=== PATIENT | male | born 1965 | race Two or more races ===

== ENCOUNTER 2017-04-09 12:29 | Emergency (ER) | payer MEDICAID, OTHER ==
[~2017-04-09] VITALS: Ht 177.8 cm; Wt 72.7 kg
[~2017-04-09 12:29] MED LIST: DOXY50CA4 PO; OMEP20TA62 PO; PANT40TA5 PO
[2017-04-09 12:31] VITALS: BP 151/91
[2017-04-09] MEDS ORDERED: DIAZEPAM 5 MG TABLET ONE (13:26)
[2017-04-09] MEDS ORDERED: HYDROcodone/APAP 5/325 TABLET ONE (13:27)
[2017-04-09] MEDS ORDERED: KETOROLAC 30 MG/1 ML ONE (13:27)
[2017-04-09] MEDS ORDERED: KETOROLAC 30 MG/1 ML IM ONE (13:30)
[2017-04-09] MEDS ORDERED: HYDROcodone/APAP 5/325 TABLET PO ONE (13:30)
[2017-04-09] MEDS ORDERED: DIAZEPAM 5 MG TABLET PO ONE (13:30)
== END 2017-04-09 14:24 | disposition home or self-care (01) ==
LOC: ED 14:00
DX: G89.29 Other chronic pain (principal); M54.5 Low back pain; K21.9 Gastro-esophageal reflux disease without esophagitis
CPT/HCPCS: 96372; 99283; J1885

== ENCOUNTER 2017-05-19 14:08 | Emergency (ER) | payer OTHER ==
[~2017-05-19] VITALS: Ht 172.7 cm; Wt 76.6 kg
[2017-05-19 14:09] VITALS: BP 160/98
[2017-05-19] MEDS ORDERED: DIAZEPAM 5 MG TABLET ONE (14:47)
[2017-05-19] MEDS ORDERED: KETOROLAC 30 MG/1 ML ONE (14:47)
[2017-05-19] MEDS ORDERED: DIAZEPAM 5 MG TABLET PO ONE (15:00)
[2017-05-19] MEDS ORDERED: KETOROLAC 30 MG/1 ML IM ONE (15:00)
[2017-05-19] MEDS ORDERED: HYDROcodone/APAP 5/325 TABLET ONE (15:26)
[2017-05-19] MEDS ORDERED: HYDROcodone/APAP 5/325 TABLET PO ONE (15:30)
== END 2017-05-19 15:42 | disposition home or self-care (01) ==
LOC: ED 15:29
DX: S39.012A Strain of muscle, fascia and tendon of lower back, initial encounter (principal); G89.29 Other chronic pain; K21.9 Gastro-esophageal reflux disease without esophagitis; Y99.0 Civilian activity done for income or pay; Y93.89 Activity, other specified; Y92.89 Other specified places as the place of occurrence of the external cause
CPT/HCPCS: 96372; 99283; J1885

== ENCOUNTER 2017-07-28 06:45 | Emergency (ER) | payer MEDICAID, OTHER ==
[~2017-07-28] VITALS: Ht 175.3 cm; Wt 78.0 kg
[2017-07-28 07:10] VITALS: BP 149/82
== END 2017-07-28 07:34 | disposition home or self-care (01) ==
LOC: ED 07:10
DX: M54.42 Lumbago with sciatica, left side (principal); G89.29 Other chronic pain; K21.9 Gastro-esophageal reflux disease without esophagitis
CPT/HCPCS: 99283

== ENCOUNTER 2018-01-16 08:31 | Emergency (ER) | payer MEDICAID, OTHER ==
[~2018-01-16] VITALS: Ht 177.8 cm; Wt 80.5 kg
[2018-01-16 08:33] VITALS: BP 147/75
[2018-01-16] MEDS ORDERED: HYDROcodone/APAP 5/325 TABLET ONE (08:48)
[2018-01-16] MEDS ORDERED: HYDROcodone/APAP 5/325 TABLET PO ONE (09:00)
== END 2018-01-16 09:22 | disposition home or self-care (01) ==
LOC: ED 09:16
DX: K02.9 Dental caries, unspecified (principal); K21.9 Gastro-esophageal reflux disease without esophagitis
CPT/HCPCS: 99283

== ENCOUNTER 2018-01-26 14:27 | Emergency (ER) | payer MEDICAID | END 2018-01-26 15:35 | disposition left against medical advice (07) | LOC: ED 15:29 | DX: K13.79 Other lesions of oral mucosa (principal); Z53.21 Procedure and treatment not carried out due to patient leaving prior to being seen by health care provider ==

== ENCOUNTER 2018-02-21 20:06 | Emergency (ER) | payer MEDICAID ==
[~2018-02-21] VITALS: Ht 177.8 cm; Wt 79.8 kg
[2018-02-21 20:20] VITALS: BP 150/84
== END 2018-02-21 21:37 | disposition home or self-care (01) ==
LOC: ED 21:31
DX: K08.89 Other specified disorders of teeth and supporting structures (principal); K21.9 Gastro-esophageal reflux disease without esophagitis
CPT/HCPCS: 99283

== ENCOUNTER 2018-06-08 17:21 | Inpatient (IN) | payer MEDICAID ==
[~2018-06-08] VITALS: Ht 175.3 cm; Wt 74.0 kg
--- NOTE | 2018-06-08 17:53 | NUR ---
FIRST CONTACT WITH PT. PT REPORTS CONSTANT 9/10 MIDLINE PELVIC PAIN X THIS AM. WORSENING AT APPROX 1500. +N/V/D. EMESIS X1, DIARRHEA X3. DENIES BLOOD IN EMESIS OR STOOL/URINARY SYMPTOMS/FEVER. HX OF GASTRIC ULCER. NO RELIEF W/ RX'D ZOFRAN OR RANITIDINE. BP/SPO2 MONITOR IN PLACE. IV ESTABLISHED, LABS DRAWN. PT AMBUALTED STEADILY TO BATHROOM TO PROVIDE UA. AWAITING ERP EVAL.
[2018-06-08] MEDS ORDERED: RANI150T4 PO (17:59)
[2018-06-08] MEDS ORDERED: DICY10CA3 PO (17:59)
[2018-06-08] MEDS ORDERED: ONDA8TAB9 PO (17:59)
[2018-06-08] MEDS ORDERED: SODIUM CHLORIDE 0.9% 1,000 ML IV ONE ×2 (18:11→19:40)
[2018-06-08] MEDS ORDERED: SODIUM CHLORIDE 0.9% 1,000ML IVBOLUS ONE (18:30)
[2018-06-08] MEDS ORDERED: ONDANSETRON 2MG/ML, 2ML IVPush ONE (18:30)
[2018-06-08] MEDS ORDERED: SODIUM CHLORIDE FLUSH 10ML SYR IVF ONE (18:30)
[2018-06-08] MEDS ORDERED: METOCLOPRAMIDE 5 MG/ML, 2ML IVPush ONE (18:30)
[2018-06-08 18:34] LABS: BASOPHILS # (AUTO) 0.01 x10^3/uL (0-0.1); BASOPHILS % (AUTO) 0 % (0-1); EOSINOPHILS # (AUTO) 0.09 x10^3/uL (0-0.4); EOSINOPHILS % (AUTO) 2 % (1-7); LYMPHOCYTES # (AUTO) 2.14 x10^3/uL (1-3.4); LYMPHOCYTES % (AUTO) 43 % (22-44); MD NO; MEAN CORPUSCULAR HEMOGLOBIN 29.8 pg (27.5-34.5); MEAN CORPUSCULAR HGB CONC 34.5 g/dL (33.2-36.2); MEAN CORPUSCULAR VOLUME 86.4 fL (81-97); MEAN PLATELET VOLUME 7.4 fL (7.4-10.4); MONOCYTES % (AUTO) 8 % (2-9); NEUTROPHILS # (AUTO) 2.31 x10^3/uL (1.8-6.8); NEUTROPHILS % (AUTO) 47 % (42-75); PLATELET COUNT 247 x10^3/uL (130-400); RED BLOOD COUNT 5.36 x10^6/uL (4.38-5.82); RED CELL DISTRIBUTION WIDTH 13.2 % (9.4-14.8)
[2018-06-08] MEDS ORDERED: METOCLOPRAMIDE 5 MG/ML, 2ML ONE ×2 (18:36→18:38)
[2018-06-08 18:44] LABS: ALANINE AMINOTRANSFERASE 33 U/L (12-78); ALBUMIN 4.1 g/dL (3.4-5.0); ANION GAP 6 mmol/L (5-15); CALCIUM 8.9 mg/dL (8.5-10.1); CHLORIDE 110 mmol/L (98-107); CREATININE 0.82 mg/dL (0.7-1.3)
--- NOTE | 2018-06-08 18:44 | NUR ---
PT MEDICATED PER EMAR FOR NAUSEA.
[2018-06-08 18:45] LABS: MICROSCOPIC AUTO
[2018-06-08 18:46] LABS: ALKALINE PHOSPHATASE 133 U/L (45-117); BILIRUBIN,TOTAL 0.4 mg/dL (0.2-1.0); TOTAL PROTEIN 7.5 g/dL (6.4-8.2)
[2018-06-08 18:57] LABS: CULTURE INDICATED? NO
--- NOTE | 2018-06-08 19:12 | NUR ---
PT RESTING ON GURNEY, IV FLUIDS INFUSING, MONITORS REAPPLIED, SIDERAISL UP X2, CALL LIGHT WITHIN REACH, PT AWARE OF NEED FOR STOOL SAMPLE AND UNABLE TO PROVIDE SAMPLE AT THIS TIME, DENIES FURTHER NEEDS. AWAITING CT RESULT
[2018-06-08] MEDS ORDERED: SODIUM CHLORIDE FLUSH 10ML SYR IVF PRN (20:00)
--- NOTE | 2018-06-08 20:11 | NUR ---
CALLED TO GIVE REPORT, NOTIFIED RN IN ROOM WITH PT AND WILL CALL ME RIGHT BACK
[2018-06-08 20:50] VITALS: BP 136/81
[2018-06-08] MEDS ORDERED: BISACODYL 10 MG SUPP PR PRN (21:00)
[2018-06-08] MEDS ORDERED: hydrALAzine 20 MG/ML, 1ML IVPush PRN (21:00)
[2018-06-08] MEDS ORDERED: ONDANSETRON 2MG/ML, 2ML IVPush PRN (21:00)
[2018-06-08] MEDS ORDERED: KETOROLAC 30 MG/1 ML IV PRN (21:00)
[2018-06-08] MEDS: FAMOTIDINE 20 MG/2 ML IVPush SCH (22:32)
[2018-06-08] MEDS: HEPARIN 5,000 UNITS/ML, 1ML SQ SCH (22:33)
[2018-06-08] MEDS: LACTATED RINGERS 1,000 ML IV SCH (22:34)
[2018-06-09 01:35] VITALS: BP 136/81
[2018-06-09 01:50] VITALS: BP 119/68
[2018-06-09] MEDS: LACTATED RINGERS 1,000 ML IV SCH ×2 (03:32→11:08)
[2018-06-09 04:52] LABS: BASOPHILS # (AUTO) 0.01 x10^3/uL (0-0.1); BASOPHILS % (AUTO) 0 % (0-1); EOSINOPHILS % (AUTO) 2 % (1-7); LYMPHOCYTES % (AUTO) 46 % (22-44); MD NO; MEAN CORPUSCULAR HEMOGLOBIN 29.8 pg (27.5-34.5); MEAN CORPUSCULAR HGB CONC 34.2 g/dL (33.2-36.2); MEAN PLATELET VOLUME 7.2 fL (7.4-10.4); MONOCYTES # (AUTO) 0.39 x10^3/uL (0.2-0.8); MONOCYTES % (AUTO) 9 % (2-9); NEUTROPHILS # (AUTO) 1.89 x10^3/uL (1.8-6.8); NEUTROPHILS % (AUTO) 43 % (42-75); PLATELET COUNT 213 x10^3/uL (130-400); RED BLOOD COUNT 4.75 x10^6/uL (4.38-5.82); RED CELL DISTRIBUTION WIDTH 13.5 % (9.4-14.8)
[2018-06-09 05:08] LABS: CHLORIDE 114 mmol/L (98-107)
[2018-06-09 05:14] LABS: ALANINE AMINOTRANSFERASE 29 U/L (12-78); ALBUMIN 3.2 g/dL (3.4-5.0); ALKALINE PHOSPHATASE 113 U/L (45-117); ANION GAP 3 mmol/L (5-15); BILIRUBIN,TOTAL 0.5 mg/dL (0.2-1.0); CALCIUM 7.9 mg/dL (8.5-10.1); CHOL/HDL RATIO 3.7; CHOLESTEROL, TOTAL 157 mg/dL (140-239); CREATININE 0.79 mg/dL (0.7-1.3); HDL CHOL % 27 % (26-37); HDL CHOLESTEROL (DIRECT) 42 mg/dL (40-60); LDL CHOLESTEROL,CALCULATED 83 mg/dL (54-169); TRIGLYCERIDES 162 mg/dL (50-200); VLDL CHOLESTEROL 32 mg/dL (0-25)
[2018-06-09] MEDS: HEPARIN 5,000 UNITS/ML, 1ML SQ SCH ×2 (06:28→14:30)
[2018-06-09] MEDS: FAMOTIDINE 20 MG/2 ML IVPush SCH (09:00)
[2018-06-09 09:29] VITALS: BP 115/75
[2018-06-09] MEDS ORDERED: KETOROLAC 30 MG/1 ML IVPush PRN (11:30)
[2018-06-09 14:45] VITALS: BP 133/90
== END 2018-06-09 15:03 | disposition left against medical advice (07) | DRG 393 ==
LOC: ED 17:50 → EDIP 19:41 → 3NE 20:50 → UNDODISIN 06-09 10:43
PROVIDERS: ADMIT Family Medicine; ATTEND Family Medicine
DX: K40.90 Unilateral inguinal hernia, without obstruction or gangrene, not specified as recurrent (principal); K85.00 Idiopathic acute pancreatitis without necrosis or infection; B18.1 Chronic viral hepatitis B without delta-agent; K21.9 Gastro-esophageal reflux disease without esophagitis; I10 Essential (primary) hypertension; K57.90 Diverticulosis of intestine, part unspecified, without perforation or abscess without bleeding; K58.9 Irritable bowel syndrome, unspecified; K27.9 Peptic ulcer, site unspecified, unspecified as acute or chronic, without hemorrhage or perforation; Z53.21 Procedure and treatment not carried out due to patient leaving prior to being seen by health care provider
CPT/HCPCS: 36415; 96361; 99285; J3490; 74177; 80053; 80061; 81001; 83605; 83690; 85025; 89055; 93005; 96374; G0378; J1644; J1885; J2765; J7030; J7120

== ENCOUNTER 2018-06-13 14:01 | Emergency (ER) | payer MEDICAID ==
[~2018-06-13] VITALS: Ht 176.5 cm; Wt 77.0 kg
[~2018-06-13 14:01] MED LIST changes: +DICY10CA3 PO; +ONDA8TAB9 PO; +RANI150T4 PO
[2018-06-13 14:28] LABS: BASOPHILS # (AUTO) 0.01 x10^3/uL (0-0.1); BASOPHILS % (AUTO) 0 % (0-1); EOSINOPHILS # (AUTO) 0.08 x10^3/uL (0-0.4); EOSINOPHILS % (AUTO) 2 % (1-7); LYMPHOCYTES # (AUTO) 1.58 x10^3/uL (1-3.4); LYMPHOCYTES % (AUTO) 41 % (22-44); MD NO; MEAN CORPUSCULAR HEMOGLOBIN 29.1 pg (27.5-34.5); MEAN CORPUSCULAR VOLUME 85.7 fL (81-97); MEAN PLATELET VOLUME 7.1 fL (7.4-10.4); MONOCYTES # (AUTO) 0.36 x10^3/uL (0.2-0.8); MONOCYTES % (AUTO) 9 % (2-9); NEUTROPHILS # (AUTO) 1.87 x10^3/uL (1.8-6.8); NEUTROPHILS % (AUTO) 48 % (42-75); PLATELET COUNT 236 x10^3/uL (130-400); RED BLOOD COUNT 5.36 x10^6/uL (4.38-5.82); RED CELL DISTRIBUTION WIDTH 13.3 % (9.4-14.8)
[2018-06-13] MEDS ORDERED: ONDANSETRON ODT 4 MG PO ONE (14:30)
[2018-06-13 14:39] LABS: ALANINE AMINOTRANSFERASE 32 U/L (12-78); ALBUMIN 4.1 g/dL (3.4-5.0); ANION GAP 4 mmol/L (5-15); CALCIUM 8.7 mg/dL (8.5-10.1); CHLORIDE 113 mmol/L (98-107); CREATININE 0.84 mg/dL (0.7-1.3)
[2018-06-13 14:42] LABS: ALKALINE PHOSPHATASE 151 U/L (45-117); BILIRUBIN,TOTAL 0.3 mg/dL (0.2-1.0); TOTAL PROTEIN 7.4 g/dL (6.4-8.2)
--- NOTE | 2018-06-13 15:09 | NUR ---
PT TO ROOM FROM LOBBY.
--- NOTE | 2018-06-13 15:14 | NUR ---
CONTACT WITH PT, 53 YR OLD MALE HERE WITH C/O "I WAS RELEASED SATURDAY, I WAS DX WITH PANCREATITIS, THEY WANTED ME TO STAY, BUT I WANTED TO LEAVE. I SAW MY DOCTOR TODAY AND SHE SAID I SHOULD COME BACK AND HAVE ANOTHER XRAY. I HAVENT SLEPT SINCE YESTERDAY. I HAVE N/V THIS AM. I STILL HAVE NAUSEA"
[2018-06-13 15:21] VITALS: BP 133/80
--- NOTE | 2018-06-13 15:22 | NUR ---
DR GROSS AT BEDSIDE TO EVAL PT
[2018-06-13] MEDS ORDERED: ONDANSETRON ODT 4 MG ONE (15:27)
[2018-06-13] MEDS ORDERED: FAMOTIDINE 20 MG TABLET ONE (15:27)
[2018-06-13] MEDS ORDERED: MAALOX/HYOSCYAMINE/LIDOCAINE 45 ML BTL ONE (15:27)
[2018-06-13] MEDS ORDERED: FAMOTIDINE 20 MG TABLET PO ONE (15:30)
[2018-06-13] MEDS ORDERED: MAALOX/HYOSCYAMINE/LIDOCAINE 45 ML BTL PO ONE (15:30)
--- NOTE | 2018-06-13 15:32 | NUR ---
PT MEDICATED FOR NAUSEA AND 7-8/10 PAIN ORDERED.
[2018-06-13 15:56] LABS: MICROSCOPIC NOT IND
[2018-06-13 16:08] LABS: CULTURE INDICATED? NO
--- NOTE | 2018-06-13 16:15 | NUR ---
PT RETURN TO ROOM FROM U/S. PT PROVIDED WITH BLANKET. NO OTHER NEEDS EXPRESSED AT THIS TIME. WAITING FOR TEST RESULTS.
--- NOTE | 2018-06-13 16:49 | NUR ---
PT FEELING BETTER AFTER ZOFRAN AND GI COCKTAIL. NO IV TO DC. REVIEWED DC INSTRUCTIONS WITH PT, UNDERSTANDING VERBALIZED. PT TO F/U WITH GI. PT LEFT AMB, GAIT STEADY.
== END 2018-06-13 16:51 | disposition home or self-care (01) ==
LOC: ED 16:37
DX: K29.70 Gastritis, unspecified, without bleeding (principal); I10 Essential (primary) hypertension; K21.9 Gastro-esophageal reflux disease without esophagitis
CPT/HCPCS: 36415; 76700; 80053; 81003; 83690; 85025; 86677; 99284; Q0162

== ENCOUNTER 2018-06-27 17:25 | Emergency (ER) | payer MEDICAID ==
[~2018-06-27] VITALS: Ht 175.3 cm; Wt 77.9 kg
[2018-06-27 18:02] LABS: BASOPHILS # (AUTO) 0.01 x10^3/uL (0-0.1); BASOPHILS % (AUTO) 0 % (0-1); EOSINOPHILS # (AUTO) 0.08 x10^3/uL (0-0.4); EOSINOPHILS % (AUTO) 2 % (1-7); LYMPHOCYTES # (AUTO) 1.61 x10^3/uL (1-3.4); LYMPHOCYTES % (AUTO) 36 % (22-44); MD NO; MEAN CORPUSCULAR HEMOGLOBIN 29.5 pg (27.5-34.5); MEAN CORPUSCULAR HGB CONC 34.1 g/dL (33.2-36.2); MEAN CORPUSCULAR VOLUME 86.5 fL (81-97); MEAN PLATELET VOLUME 7.3 fL (7.4-10.4); MONOCYTES # (AUTO) 0.28 x10^3/uL (0.2-0.8); MONOCYTES % (AUTO) 6 % (2-9); NEUTROPHILS # (AUTO) 2.47 x10^3/uL (1.8-6.8); NEUTROPHILS % (AUTO) 56 % (42-75); PLATELET COUNT 248 x10^3/uL (130-400); RED CELL DISTRIBUTION WIDTH 13.1 % (9.4-14.8)
[2018-06-27 18:09] LABS: ANION GAP 4 mmol/L (5-15); CALCIUM 8.5 mg/dL (8.5-10.1); CHLORIDE 112 mmol/L (98-107)
[2018-06-27 18:15] LABS: ALANINE AMINOTRANSFERASE 27 U/L (12-78); ALKALINE PHOSPHATASE 122 U/L (45-117); BILIRUBIN,TOTAL 0.6 mg/dL (0.2-1.0); CREATININE 0.91 mg/dL (0.7-1.3); TOTAL PROTEIN 7.4 g/dL (6.4-8.2)
--- NOTE | 2018-06-27 19:16 | NUR ---
PT TO T-1 FROM [facility]
--- NOTE | 2018-06-27 19:30 | NUR ---
PT PRESENTS TO ED WITH C/O EPIGASTRIC PAIN, HEARTBURN AND NAUSEA X 3 WEEKS. PT ATTACHED TO ALL MONITORS, EKG OBTAINED IN TRIAGE. PT A&O, RESPS EVEN AND UNLABORED, NADN.
--- NOTE | 2018-06-27 19:45 | NUR ---
EDMD LAW AT BEDSIDE TO UPDATE PT WITH POC AND RESULTS.
[2018-06-27 20:18] VITALS: BP 128/82
== END 2018-06-27 20:22 | disposition home or self-care (01) ==
LOC: ED 19:37
DX: R10.13 Epigastric pain (principal); R11.0 Nausea
CPT/HCPCS: 36415; 80053; 83690; 85025; 93005; 99284

== ENCOUNTER 2018-09-10 14:17 | Emergency (ER) | payer MEDICAID ==
[~2018-09-10] VITALS: Ht 177.8 cm; Wt 78.6 kg
[2018-09-10 14:20] VITALS: BP 145/86
--- NOTE | 2018-09-10 14:23 | NUR ---
EKG performed in triage
--- NOTE | 2018-09-10 14:40 | NUR ---
SCIENTIST [employer]; PT TO ROOM FROM [facility]
[2018-09-10 14:45] LABS: BASOPHILS # (AUTO) 0.01 x10^3/uL (0-0.1); BASOPHILS % (AUTO) 0 % (0-1); EOSINOPHILS # (AUTO) 0.05 x10^3/uL (0-0.4); EOSINOPHILS % (AUTO) 1 % (1-7); LYMPHOCYTES # (AUTO) 1.58 x10^3/uL (1-3.4); LYMPHOCYTES % (AUTO) 33 % (22-44); MD NO; MEAN CORPUSCULAR HEMOGLOBIN 29.5 pg (27.5-34.5); MEAN CORPUSCULAR HGB CONC 33.2 g/dL (33.2-36.2); MEAN CORPUSCULAR VOLUME 88.8 fL (81-97); MONOCYTES # (AUTO) 0.29 x10^3/uL (0.2-0.8); MONOCYTES % (AUTO) 6 % (2-9); NEUTROPHILS # (AUTO) 2.89 x10^3/uL (1.8-6.8); NEUTROPHILS % (AUTO) 60 % (42-75); PLATELET COUNT 249 x10^3/uL (130-400); RED BLOOD COUNT 5.02 x10^6/uL (4.38-5.82); RED CELL DISTRIBUTION WIDTH 13.2 % (9.4-14.8)
[2018-09-10 15:01] LABS: TROPONIN I < 0.015 ng/mL (0.000-0.045)
--- NOTE | 2018-09-10 15:47 | NUR ---
Patient/Caregiver given discharge instructions and they have confirmed that they understand the instructions. Patient ambulatory with steady gait.
== END 2018-09-10 15:49 | disposition home or self-care (01) ==
LOC: ED 15:29
DX: R07.89 Other chest pain (principal); I10 Essential (primary) hypertension
CPT/HCPCS: 36415; 71046; 84484; 85025; 93005; 99284

== ENCOUNTER 2018-10-11 13:17 | Emergency (ER) | payer MEDICAID ==
[~2018-10-11] VITALS: Ht 177.8 cm; Wt 77.7 kg
[2018-10-11 15:15] VITALS: BP 132/79
== END 2018-10-11 15:34 | disposition home or self-care (01) ==
LOC: ED 13:48
DX: R42 Dizziness and giddiness (principal); R55 Syncope and collapse; K21.9 Gastro-esophageal reflux disease without esophagitis; I10 Essential (primary) hypertension; Z90.49 Acquired absence of other specified parts of digestive tract
CPT/HCPCS: 36415; 71045; 76700; 80053; 83690; 85025; 93005; 99284

== ENCOUNTER 2019-02-04 19:23 | Emergency (ER) | payer MEDICAID ==
[~2019-02-04] VITALS: Ht 177.8 cm; Wt 79.7 kg
[2019-02-04 19:29] VITALS: BP 142/79
--- NOTE | 2019-02-04 21:04 | NUR ---
signal intelligence analyst: pt not in lobby at this time
--- NOTE | 2019-02-04 21:16 | NUR ---
drainage engineer: pt not in lobby at this time
--- NOTE | 2019-02-04 21:26 | NUR ---
business process modeler: pt not in lobby at this time
== END 2019-02-04 21:28 | disposition left against medical advice (07) ==
LOC: ED 21:22
DX: J02.9 Acute pharyngitis, unspecified (principal); Z53.21 Procedure and treatment not carried out due to patient leaving prior to being seen by health care provider

== ENCOUNTER 2019-03-27 21:37 | Emergency (ER) | payer MEDICAID ==
[~2019-03-27] VITALS: Ht 177.8 cm; Wt 80.0 kg
--- NOTE | 2019-03-27 21:42 | NUR ---
NO ANSWER WHEN CALLED FOR TRIAGE
[2019-03-27 21:49] VITALS: BP 158/84
--- NOTE | 2019-03-27 23:20 | NUR ---
JOSÉ ANTONIOX1
--- NOTE | 2019-03-27 23:32 | NUR ---
NILX2
--- NOTE | 2019-03-27 23:39 | NUR ---
NILX3
== END 2019-03-27 23:41 | disposition left against medical advice (07) ==
LOC: ED 23:30
DX: R11.2 Nausea with vomiting, unspecified (principal); Z53.21 Procedure and treatment not carried out due to patient leaving prior to being seen by health care provider
CPT/HCPCS: 93005

== ENCOUNTER 2019-04-05 13:42 | Emergency (ER) | payer MEDICAID ==
[~2019-04-05] VITALS: Ht 177.8 cm; Wt 80.9 kg
--- NOTE | 2019-04-05 13:52 | NUR ---
LAB AIDE: EKG COMPLETED IN TRIAGE
--- NOTE | 2019-04-05 14:17 | NUR ---
XR AT BS.
[2019-04-05 14:28] LABS: BASOPHILS # (AUTO) 0.01 x10^3/uL (0-0.1); BASOPHILS % (AUTO) 0 % (0-1); EOSINOPHILS # (AUTO) 0.06 x10^3/uL (0-0.4); EOSINOPHILS % (AUTO) 1 % (1-7); LYMPHOCYTES # (AUTO) 1.31 x10^3/uL (1-3.4); LYMPHOCYTES % (AUTO) 29 % (22-44); MD NO; MEAN CORPUSCULAR HEMOGLOBIN 29.4 pg (27.5-34.5); MEAN CORPUSCULAR HGB CONC 33.6 g/dL (33.2-36.2); MEAN CORPUSCULAR VOLUME 87.7 fL (81-97); MEAN PLATELET VOLUME 7.2 fL (7.4-10.4); MONOCYTES # (AUTO) 0.26 x10^3/uL (0.2-0.8); MONOCYTES % (AUTO) 6 % (2-9); NEUTROPHILS # (AUTO) 2.81 x10^3/uL (1.8-6.8); NEUTROPHILS % (AUTO) 63 % (42-75); PLATELET COUNT 226 x10^3/uL (130-400); RED BLOOD COUNT 5.18 x10^6/uL (4.38-5.82); RED CELL DISTRIBUTION WIDTH 12.9 % (9.4-14.8)
[2019-04-05 14:32] LABS: ALANINE AMINOTRANSFERASE 22 U/L (12-78); ALBUMIN 3.7 g/dL (3.4-5.0); ANION GAP 7 mmol/L (5-15); CALCIUM 8.8 mg/dL (8.5-10.1); CHLORIDE 110 mmol/L (98-107)
[2019-04-05 14:37] LABS: ALKALINE PHOSPHATASE 135 U/L (45-117); BILIRUBIN,TOTAL 0.4 mg/dL (0.2-1.0); CREATININE 0.93 mg/dL (0.7-1.3); TOTAL PROTEIN 7.3 g/dL (6.4-8.2); TROPONIN I < 0.015 ng/mL (0.000-0.045)
[2019-04-05] MEDS ORDERED: SODIUM CHLORIDE FLUSH 10ML SYR IVF ONE (15:00)
[2019-04-05] MEDS ORDERED: SODIUM CHLORIDE 0.9% 1,000ML IVBOLUS ONE (15:00)
--- NOTE | 2019-04-05 15:30 | NUR ---
IVF INFUSING, PT UNDERSTANDS POC. NO S/S OF DISTRESS.
--- NOTE | 2019-04-05 15:54 | NUR ---
PT AMBULATED TO BR WITHOUT DIFFICULTY.
[2019-04-05 16:42] VITALS: BP 139/82
--- NOTE | 2019-04-05 16:43 | NUR ---
BREAK RN: PT READY FOR DISCHARGE
== END 2019-04-05 16:55 | disposition home or self-care (01) ==
LOC: ED 14:06
DX: R42 Dizziness and giddiness (principal); E86.0 Dehydration; I10 Essential (primary) hypertension; G89.29 Other chronic pain; K21.9 Gastro-esophageal reflux disease without esophagitis; Z90.49 Acquired absence of other specified parts of digestive tract
CPT/HCPCS: 36415; 71045; 80053; 83880; 84484; 85025; 93005; 96360; 99284; J7030

== ENCOUNTER 2019-05-10 16:10 | Emergency (ER) | payer MEDICAID ==
[~2019-05-10] VITALS: Ht 177.8 cm; Wt 81.9 kg
[2019-05-10 16:16] VITALS: BP 155/95
--- NOTE | 2019-05-10 16:58 | NUR ---
Pt here to be checked for flu because he does not feel well. Pt reports that he was checked and seen twice at [facility] already. however he has a burining sensation in his lips now and is more worried. Pt has normal viatals, a/ox4 and ambulated without difficulty. awaiting further orders.
[2019-05-10] MEDS ORDERED: SODIUM CHLORIDE 0.9% 1,000ML IVBOLUS ONE (17:30)
[2019-05-10 17:43] LABS: FIO2 ROOM AIR %; PH, VENOUS 7.335 pH (7.320-7.420)
[2019-05-10 17:49] LABS: BASOPHILS # (AUTO) 0.01 x10^3/uL (0-0.1); BASOPHILS % (AUTO) 0 % (0-1); EOSINOPHILS % (AUTO) 2 % (1-7); LYMPHOCYTES # (AUTO) 1.58 x10^3/uL (1-3.4); LYMPHOCYTES % (AUTO) 37 % (22-44); MD NO; MEAN CORPUSCULAR HEMOGLOBIN 29.7 pg (27.5-34.5); MEAN CORPUSCULAR HGB CONC 34.1 g/dL (33.2-36.2); MEAN CORPUSCULAR VOLUME 86.9 fL (81-97); MONOCYTES # (AUTO) 0.29 x10^3/uL (0.2-0.8); MONOCYTES % (AUTO) 7 % (2-9); NEUTROPHILS # (AUTO) 2.28 x10^3/uL (1.8-6.8); NEUTROPHILS % (AUTO) 54 % (42-75); PLATELET COUNT 233 x10^3/uL (130-400); RED BLOOD COUNT 5.01 x10^6/uL (4.38-5.82); RED CELL DISTRIBUTION WIDTH 12.7 % (9.4-14.8)
[2019-05-10 17:56] LABS: ALANINE AMINOTRANSFERASE 35 U/L (12-78); ALBUMIN 3.7 g/dL (3.4-5.0); ANION GAP 6 mmol/L (5-15); CALCIUM 8.3 mg/dL (8.5-10.1); CHLORIDE 111 mmol/L (98-107); CREATININE 0.86 mg/dL (0.7-1.3)
[2019-05-10 17:58] LABS: ALKALINE PHOSPHATASE 116 U/L (45-117); BILIRUBIN,TOTAL 0.4 mg/dL (0.2-1.0); TOTAL PROTEIN 7.3 g/dL (6.4-8.2)
[2019-05-10 18:00] LABS: ACETONE, SERUM Negative (Negative)
[2019-05-10 18:37] LABS: RAPID INFLUENZA A Negative (Negative); RAPID INFLUENZA B Negative (Negative)
[2019-05-10 19:16] LABS: MICROSCOPIC NOT IND
[2019-05-10 19:22] LABS: CULTURE INDICATED? NO
--- NOTE | 2019-05-10 20:28 | NUR ---
Patient/Caregiver given discharge instructions and they have confirmed that they understand the instructions. Patient ambulatory with steady gait.
== END 2019-05-10 20:40 | disposition home or self-care (01) ==
LOC: ED 18:49
DX: R53.1 Weakness (principal); I10 Essential (primary) hypertension; K21.9 Gastro-esophageal reflux disease without esophagitis; Z90.49 Acquired absence of other specified parts of digestive tract
CPT/HCPCS: 36415; 71045; 80053; 81003; 82010; 82803; 83930; 85025; 87400; 93005; 99285; J7030

== ENCOUNTER 2019-05-29 10:33 | Emergency (ER) | payer MEDICAID ==
[~2019-05-29] VITALS: Ht 177.8 cm; Wt 81.8 kg
--- NOTE | 2019-05-29 11:07 | NUR ---
PT HAS CO DIARRHEA, STARTED THIS AM W ABDOMINAL PAIN. PT STATES "MY BUTT IS BURNING" FREQUENT TRIPS TO BATHROOM GIVEN HAT FOR SAMPLE. AT BEDSIDE
[2019-05-29] MEDS ORDERED: ONDANSETRON ODT 4 MG ONE (11:12)
[2019-05-29] MEDS ORDERED: LOPERAMIDE 2 MG CAPSULE ONE ×2 (11:12→11:17)
[2019-05-29] MEDS ORDERED: DICYCLOMINE 20 MG TABLET ONE (11:12)
[2019-05-29] MEDS ORDERED: DICYCLOMINE 10 MG/ML, 2ML ONE (11:16)
[2019-05-29 11:26] LABS: BASOPHILS # (AUTO) 0.01 x10^3/uL (0-0.1); BASOPHILS % (AUTO) 0 % (0-1); EOSINOPHILS # (AUTO) 0.03 x10^3/uL (0-0.4); EOSINOPHILS % (AUTO) 1 % (1-7); LYMPHOCYTES # (AUTO) 1.15 x10^3/uL (1-3.4); LYMPHOCYTES % (AUTO) 27 % (22-44); MD NO; MEAN CORPUSCULAR HEMOGLOBIN 29.5 pg (27.5-34.5); MEAN CORPUSCULAR HGB CONC 33.5 g/dL (33.2-36.2); MEAN CORPUSCULAR VOLUME 88.2 fL (81-97); MEAN PLATELET VOLUME 7.2 fL (7.4-10.4); MONOCYTES # (AUTO) 0.31 x10^3/uL (0.2-0.8); MONOCYTES % (AUTO) 7 % (2-9); NEUTROPHILS % (AUTO) 65 % (42-75); PLATELET COUNT 218 x10^3/uL (130-400); RED BLOOD COUNT 5.42 x10^6/uL (4.38-5.82); RED CELL DISTRIBUTION WIDTH 13.1 % (9.4-14.8)
[2019-05-29] MEDS ORDERED: LIDOCAINE 2% VISCOUS 15 ML UDC MM ONE (11:30)
[2019-05-29] MEDS ORDERED: DIAPER RASH/ZINC OXIDE PASTE 40%, 56GM TP PRN (11:30)
[2019-05-29] MEDS ORDERED: DICYCLOMINE 10 MG/ML, 2ML IM ONE (11:30)
[2019-05-29] MEDS ORDERED: LOPERAMIDE 2 MG CAPSULE PO ONE (11:30)
[2019-05-29] MEDS ORDERED: ONDANSETRON ODT 4 MG PO ONE (11:30)
[2019-05-29 11:34] LABS: ALANINE AMINOTRANSFERASE 24 U/L (12-78); ALBUMIN 3.7 g/dL (3.4-5.0); ANION GAP 6 mmol/L (5-15); CHLORIDE 111 mmol/L (98-107); CREATININE 0.88 mg/dL (0.7-1.3)
[2019-05-29 11:36] LABS: ALKALINE PHOSPHATASE 120 U/L (45-117); BILIRUBIN,TOTAL 0.5 mg/dL (0.2-1.0); TOTAL PROTEIN 7.5 g/dL (6.4-8.2)
--- NOTE | 2019-05-29 11:44 | NUR ---
MEDICATED PER EMAR WITH [employer]AMS SEMI LOOSE, YELLOWISH STOOL SAMPLE WALKED TO LAB
--- NOTE | 2019-05-29 12:30 | NUR ---
WAITING FOR LABS. PT HAS NO NEEDS AT THIS TIME
[2019-05-29 13:22] LABS: CLOSTRIDIUM DIFFICILE ANTIGEN POSITIVE; CLOSTRIDIUM DIFFICILE TOXIN NEGATIVE (Negative)
--- NOTE | 2019-05-29 13:38 | NUR ---
POC TO DC SOON
[2019-05-29 13:40] VITALS: BP 145/82
--- NOTE | 2019-05-29 13:52 | NUR ---
BREAK RN: PT RESTING IN ROOM. NO ACUTE DISTRESS NOTED. WILL CONTINUE TO MONITOR WHILE PRIMARY RN IS ON BREAK.
== END 2019-05-29 14:50 | disposition home or self-care (01) ==
LOC: ED 10:52
DX: A04.72 Enterocolitis due to Clostridium difficile, not specified as recurrent (principal); R19.7 Diarrhea, unspecified; I10 Essential (primary) hypertension; K21.9 Gastro-esophageal reflux disease without esophagitis; Z90.49 Acquired absence of other specified parts of digestive tract
CPT/HCPCS: 36415; 80053; 83690; 85025; 87324; 87493; 89055; 96372; 99284; J0500; Q0162

== ENCOUNTER 2019-06-02 12:22 | Emergency (ER) | payer MEDICAID ==
[~2019-06-02] VITALS: Ht 177.8 cm; Wt 80.8 kg
--- NOTE | 2019-06-02 12:48 | NUR ---
REPORT RECEIEVE FROM GARY GUTIERREZ. ASSUMING PRIMARY CARE OF PT.
[2019-06-02 13:11] LABS: BASOPHILS # (AUTO) 0.01 x10^3/uL (0-0.1); BASOPHILS % (AUTO) 0 % (0-1); EOSINOPHILS # (AUTO) 0.07 x10^3/uL (0-0.4); EOSINOPHILS % (AUTO) 2 % (1-7); LYMPHOCYTES # (AUTO) 1.33 x10^3/uL (1-3.4); LYMPHOCYTES % (AUTO) 33 % (22-44); MD NO; MEAN CORPUSCULAR HEMOGLOBIN 29.6 pg (27.5-34.5); MEAN CORPUSCULAR HGB CONC 33.4 g/dL (33.2-36.2); MEAN CORPUSCULAR VOLUME 88.7 fL (81-97); MEAN PLATELET VOLUME 7.1 fL (7.4-10.4); MONOCYTES % (AUTO) 7 % (2-9); NEUTROPHILS # (AUTO) 2.39 x10^3/uL (1.8-6.8); NEUTROPHILS % (AUTO) 58 % (42-75); PLATELET COUNT 232 x10^3/uL (130-400); RED BLOOD COUNT 5.28 x10^6/uL (4.38-5.82); RED CELL DISTRIBUTION WIDTH 13.1 % (9.4-14.8)
[2019-06-02] MEDS ORDERED: ONDANSETRON 2MG/ML, 2ML ONE (13:18)
[2019-06-02] MEDS ORDERED: HYDROmorphone 1 MG/ML, 1ML INJ ONE (13:18)
[2019-06-02 13:22] LABS: ALBUMIN 3.9 g/dL (3.4-5.0); ANION GAP 3 mmol/L (5-15); CALCIUM 9.1 mg/dL (8.5-10.1); CHLORIDE 109 mmol/L (98-107)
[2019-06-02 13:26] LABS: ALANINE AMINOTRANSFERASE 23 U/L (12-78); ALKALINE PHOSPHATASE 111 U/L (45-117); BILIRUBIN,TOTAL 0.4 mg/dL (0.2-1.0); CREATININE 0.82 mg/dL (0.7-1.3); TOTAL PROTEIN 7.6 g/dL (6.4-8.2)
[2019-06-02 13:28] LABS: MICROSCOPIC AUTO
[2019-06-02 13:29] LABS: CULTURE INDICATED? NO
[2019-06-02] MEDS ORDERED: HYDROmorphone 2 MG/ML, 1ML IVPush PRN (13:30)
[2019-06-02] MEDS ORDERED: SODIUM CHLORIDE FLUSH 10ML SYR IVF ONE (13:30)
[2019-06-02] MEDS ORDERED: ONDANSETRON 2MG/ML, 2ML IVPush ONE (13:30)
--- NOTE | 2019-06-02 14:07 | NUR ---
PT TO CT
--- NOTE | 2019-06-02 14:16 | NUR ---
PT BACK FROM CT, PT AMBULATORY TO BATHROOM.
[2019-06-02] MEDS ORDERED: OMNIPAQUE 350 MG/ML, 100ML BOTTLE ONE (14:22)
[2019-06-02 14:31] VITALS: BP 137/82
== END 2019-06-02 15:02 | disposition home or self-care (01) ==
LOC: ED 12:46
DX: R19.7 Diarrhea, unspecified (principal); R10.30 Lower abdominal pain, unspecified; K21.9 Gastro-esophageal reflux disease without esophagitis; I10 Essential (primary) hypertension; Z90.49 Acquired absence of other specified parts of digestive tract
CPT/HCPCS: 36415; 74177; 80053; 81001; 85025; 96374; 99285; J1170; Q9967

== ENCOUNTER 2019-07-09 19:45 | Emergency (ER) | payer MEDICAID ==
[~2019-07-09] VITALS: Ht 177.8 cm; Wt 79.7 kg
--- NOTE | 2019-07-09 20:05 | NUR ---
1ST CONTACT C PT. RESTING ON CART IN NAD. STATES SEEN GI TODAY, SENT FOR LABS (TO BE DRAWN SATURDAY) & INFORMED OF POSSIBILITY OF SX FOR HERNIA REPAIR. PT HAS HAD DIARRHEA X 1 DAY, WENT HOME & TOOK OTC RXS S RELIEF. PT ALSO STATES HE HAD FEVER, AFEBRILE AT TIME TO ER. TO BE SEEN.
[2019-07-09 20:53] LABS: BASOPHILS # (AUTO) 0.01 x10^3/uL (0-0.1); BASOPHILS % (AUTO) 0 % (0-1); EOSINOPHILS # (AUTO) 0.06 x10^3/uL (0-0.4); EOSINOPHILS % (AUTO) 1 % (1-7); LYMPHOCYTES # (AUTO) 1.68 x10^3/uL (1-3.4); LYMPHOCYTES % (AUTO) 41 % (22-44); MD NO; MEAN CORPUSCULAR HEMOGLOBIN 29.5 pg (27.5-34.5); MEAN CORPUSCULAR HGB CONC 34.1 g/dL (33.2-36.2); MEAN CORPUSCULAR VOLUME 86.5 fL (81-97); MEAN PLATELET VOLUME 7.9 fL (7.4-10.4); MONOCYTES # (AUTO) 0.34 x10^3/uL (0.2-0.8); MONOCYTES % (AUTO) 8 % (2-9); NEUTROPHILS # (AUTO) 2.05 x10^3/uL (1.8-6.8); NEUTROPHILS % (AUTO) 50 % (42-75); PLATELET COUNT 223 x10^3/uL (130-400); RED CELL DISTRIBUTION WIDTH 12.9 % (9.4-14.8)
--- NOTE | 2019-07-09 20:53 | NUR ---
PT AMBULATORY TO RESTROOM C STEADY GAIT. SAMPLE OBTAINED & SENT.
[2019-07-09 20:54] LABS: CHLORIDE 110 mmol/L (98-107)
[2019-07-09 20:55] LABS: ANION GAP 6 mmol/L (5-15); CALCIUM 8.8 mg/dL (8.5-10.1); CREATININE 0.96 mg/dL (0.7-1.3)
[2019-07-09 21:06] LABS: MICROSCOPIC AUTO
[2019-07-09 21:09] LABS: CULTURE INDICATED? NO
[2019-07-09 21:48] VITALS: BP 151/62
[2019-07-10] MEDS ORDERED: HYDROcodone/APAP 5/325 TABLET ONE (00:52)
== END 2019-07-09 21:50 | disposition home or self-care (01) ==
LOC: ED 20:30
DX: R10.30 Lower abdominal pain, unspecified (principal); R19.7 Diarrhea, unspecified; K21.9 Gastro-esophageal reflux disease without esophagitis; I10 Essential (primary) hypertension; Z90.49 Acquired absence of other specified parts of digestive tract
CPT/HCPCS: 36415; 80048; 81001; 85025; 99283

== ENCOUNTER 2019-09-02 09:29 | Emergency (ER) | payer MEDICAID ==
[~2019-09-02] VITALS: Ht 177.8 cm; Wt 79.9 kg
--- NOTE | 2019-09-02 10:00 | NUR ---
PT IN ROOM AND PLACED ON NIBP AND O2 MONITORING. PT C/O RIGHT UPPER QUAD ABD PAIN. HX OF GI ULCER, CHOLESTECTOMY, INGUINAL HERNIA, HEPATITIS B. PT RESTIUNG COMFORTABLY NADN, AND AWAITING PROVIDER EXAM. CALL LIGHT IN REACH AND ENCOURAGED TO CALL.
[2019-09-02 11:20] VITALS: BP 124/82
== END 2019-09-02 11:22 | disposition home or self-care (01) ==
LOC: ED 10:59
DX: R10.12 Left upper quadrant pain (principal); I10 Essential (primary) hypertension; K21.9 Gastro-esophageal reflux disease without esophagitis
CPT/HCPCS: 74021; 99283

== ENCOUNTER 2019-11-05 08:00 | Emergency (ER) | payer MEDICAID ==
[~2019-11-05] VITALS: Ht 177.8 cm; Wt 80.0 kg
[~2019-11-05 08:00] MED LIST changes: -PANT40TA5 PO; +PANT40TA6 PO
--- NOTE | 2019-11-05 08:16 | NUR ---
PT HAS RECENT HERNIA SURGERY. STATES HE IS HAVING PAIN AT SITE, DIAPHORESIS, AND NAUSEA. DENIES CP OR SOB. RAN OUT OF [facility]. SITE LOOKS OK, NO S/S DRAINAGE, INFECTION, BRUISED AT SITE.
[2019-11-05] MEDS ORDERED: MORPHINE SULFATE 4 MG/ML, 1ML IVPush PRN (08:30)
[2019-11-05] MEDS ORDERED: ONDANSETRON 2MG/ML, 2ML ONE (08:31)
[2019-11-05] MEDS ORDERED: MORPHINE SULFATE 4 MG/ML, 1ML ONE (08:32)
--- NOTE | 2019-11-05 08:49 | NUR ---
TASK RN: PIV EST AND LABS DRAWN. PT MED NOTED FOR ABD PAIN 09/10. DR. PACHECO AT BEDSIDE. PT ASSESSMENT REVIEWED AND POC DISCUSSED. PT TO RADIOLOGY WITH TECH TRANSPORT.
[2019-11-05 08:58] LABS: BASOPHILS # (AUTO) 0.03 x10^3/uL (0-0.1); BASOPHILS % (AUTO) 1 % (0-1); EOSINOPHILS # (AUTO) 0.09 x10^3/uL (0-0.4); EOSINOPHILS % (AUTO) 2 % (1-7); LYMPHOCYTES # (AUTO) 1.99 x10^3/uL (1-3.4); LYMPHOCYTES % (AUTO) 32 % (22-44); MD NO; MEAN CORPUSCULAR HEMOGLOBIN 29.6 pg (27.5-34.5); MEAN CORPUSCULAR HGB CONC 33.3 g/dL (33.2-36.2); MEAN CORPUSCULAR VOLUME 88.8 fL (81-97); MEAN PLATELET VOLUME 6.9 fL (7.4-10.4); MONOCYTES # (AUTO) 0.56 x10^3/uL (0.2-0.8); MONOCYTES % (AUTO) 9 % (2-9); NEUTROPHILS # (AUTO) 3.55 x10^3/uL (1.8-6.8); NEUTROPHILS % (AUTO) 57 % (42-75); PLATELET COUNT 212 x10^3/uL (130-400); RED BLOOD COUNT 5.19 x10^6/uL (4.38-5.82); RED CELL DISTRIBUTION WIDTH 13.8 % (9.4-14.8)
[2019-11-05] MEDS ORDERED: ONDANSETRON 2MG/ML, 2ML IVPush ONE (09:00)
[2019-11-05 09:08] LABS: ALBUMIN 3.4 g/dL (3.4-5.0); CALCIUM 8.9 mg/dL (8.5-10.1); CHLORIDE 108 mmol/L (98-107); CREATININE 1.05 mg/dL (0.7-1.3)
[2019-11-05 09:19] LABS: ANION GAP 5 mmol/L (5-15)
[2019-11-05 09:27] VITALS: BP 140/88
--- NOTE | 2019-11-05 09:27 | NUR ---
PT SLEEPING, VSS
[2019-11-05] MEDS ORDERED: SODIUM CHLORIDE FLUSH 10ML SYR IVF ONE (09:30)
--- NOTE | 2019-11-05 10:02 | NUR ---
DPatient/Caregiver given discharge instructions and they have confirmed that they understand the instructions. Patient ambulatory with steady gait.
== END 2019-11-05 10:04 | disposition home or self-care (01) ==
LOC: ED 09:23
DX: R10.30 Lower abdominal pain, unspecified (principal); G89.18 Other acute postprocedural pain; Z76.0 Encounter for issue of repeat prescription; K59.00 Constipation, unspecified; R00.0 Tachycardia, unspecified; K21.9 Gastro-esophageal reflux disease without esophagitis; I10 Essential (primary) hypertension
CPT/HCPCS: 36415; 74021; 80048; 82040; 85025; 93005; 96374; 96375; 99285; J2270; J2405

== ENCOUNTER 2020-01-20 21:25 | Emergency (ER) | payer MEDICAID ==
[~2020-01-20] VITALS: Ht 175.3 cm; Wt 83.1 kg
--- NOTE | 2020-01-20 22:07 | NUR ---
Patient comes in with complaints of diarrhea x1 days. Patient states that he ate sushi and then it started. Took pepto with good results, but then ate again and had another episode of diarrhea. Patient is complainting of lower abdominal pain. Urine sample collected.
[2020-01-20 22:19] LABS: MICROSCOPIC AUTO
[2020-01-20 22:53] LABS: BASOPHILS % (AUTO) 0 % (0-1); EOSINOPHILS % (AUTO) 1 % (1-7); LYMPHOCYTES % (AUTO) 33 % (22-44); MD NO; MEAN CORPUSCULAR HEMOGLOBIN 29.6 pg (27.5-34.5); MEAN CORPUSCULAR HGB CONC 33.9 g/dL (33.2-36.2); MEAN PLATELET VOLUME 7.1 fL (7.4-10.4); MONOCYTES % (AUTO) 8 % (2-9); NEUTROPHILS % (AUTO) 58 % (42-75); PLATELET COUNT 218 x10^3/uL (130-400); RED BLOOD COUNT 5.01 x10^6/uL (4.38-5.82); RED CELL DISTRIBUTION WIDTH 13.2 % (9.4-14.8)
[2020-01-20 23:10] LABS: ANION GAP 2 mmol/L (5-15); CALCIUM 8.6 mg/dL (8.5-10.1); CHLORIDE 110 mmol/L (98-107); CREATININE 0.81 mg/dL (0.7-1.3)
[2020-01-20 23:11] LABS: ALANINE AMINOTRANSFERASE 28 U/L (12-78); ALBUMIN 3.7 g/dL (3.4-5.0); ALKALINE PHOSPHATASE 127 U/L (45-117); BILIRUBIN,TOTAL 0.5 mg/dL (0.2-1.0); TOTAL PROTEIN 7.4 g/dL (6.4-8.2)
[2020-01-20] MEDS ORDERED: DICYCLOMINE 20 MG TABLET ONE (23:26)
[2020-01-20] MEDS ORDERED: ONDANSETRON ODT 4 MG ONE (23:26)
[2020-01-20 23:29] VITALS: BP 140/81
[2020-01-20] MEDS ORDERED: ONDANSETRON ODT 4 MG PO ONE (23:30)
[2020-01-20] MEDS ORDERED: DICYCLOMINE 20 MG TABLET PO ONE (23:30)
== END 2020-01-20 23:31 | disposition home or self-care (01) ==
LOC: ED 22:30
DX: R10.31 Right lower quadrant pain (principal); R10.32 Left lower quadrant pain; R19.7 Diarrhea, unspecified; K21.9 Gastro-esophageal reflux disease without esophagitis; Z90.49 Acquired absence of other specified parts of digestive tract
CPT/HCPCS: 36415; 80053; 81001; 83690; 85025; 99283; Q0162

== ENCOUNTER 2020-02-09 21:14 | Emergency (ER) | payer MEDICAID ==
[~2020-02-09] VITALS: Ht 177.8 cm; Wt 81.0 kg
[2020-02-09] MEDS ORDERED: ACETAMINOPHEN 500 MG TABLET PO ONE (22:00)
--- NOTE | 2020-02-09 23:16 | NUR ---
pt to room from lobby
[2020-02-09 23:32] LABS: BASOPHILS % (AUTO) 1 % (0-1); EOSINOPHILS % (AUTO) 0 % (1-7); LYMPHOCYTES % (AUTO) 38 % (22-44); MEAN CORPUSCULAR HEMOGLOBIN 30.2 pg (27.5-34.5); MEAN PLATELET VOLUME 7.5 fL (7.4-10.4); MONOCYTES % (AUTO) 9 % (2-9); NEUTROPHILS % (AUTO) 52 % (42-75); PLATELET COUNT 174 x10^3/uL (130-400); RED BLOOD COUNT 4.85 x10^6/uL (4.38-5.82); RED CELL DISTRIBUTION WIDTH 12.6 % (9.4-14.8)
[2020-02-09 23:34] LABS: MD NO
[2020-02-09 23:43] LABS: ALANINE AMINOTRANSFERASE 62 U/L (12-78); ALBUMIN 3.9 g/dL (3.4-5.0); ANION GAP 5 mmol/L (5-15); CALCIUM 8.5 mg/dL (8.5-10.1); CHLORIDE 109 mmol/L (98-107); CREATININE 0.95 mg/dL (0.7-1.3)
[2020-02-09 23:45] LABS: ALKALINE PHOSPHATASE 96 U/L (45-117); BILIRUBIN,TOTAL 0.5 mg/dL (0.2-1.0)
--- NOTE | 2020-02-09 23:45 | NUR ---
PT HERE FOR FEVER, COUGH, N/V/D. PT TESTED FOR COVID. VSS. LAB AT BEDSIDE
--- NOTE | 2020-02-10 00:06 | NUR ---
Patient given discharge instructions and they have confirmed that they understand the instructions. Patient ambulatory with steady gait.
[2020-02-10 00:12] VITALS: BP 139/81
== END 2020-02-10 00:14 | disposition home or self-care (01) ==
LOC: ED 23:32
DX: U07.1 COVID-19 (principal); B34.9 Viral infection, unspecified; R10.84 Generalized abdominal pain; R19.7 Diarrhea, unspecified; R05 Cough; R11.2 Nausea with vomiting, unspecified; I10 Essential (primary) hypertension; K21.9 Gastro-esophageal reflux disease without esophagitis; Z90.49 Acquired absence of other specified parts of digestive tract
CPT/HCPCS: 71045; 80053; 85025; 87635; 99284

== ENCOUNTER 2020-02-19 10:29 | Emergency (ER) | payer MEDICAID ==
[~2020-02-19] VITALS: Ht 177.8 cm; Wt 81.3 kg
[2020-02-19 10:45] VITALS: BP 149/77
== END 2020-02-19 11:44 | disposition home or self-care (01) ==
LOC: ED 11:03
DX: J06.9 Acute upper respiratory infection, unspecified (principal); R06.02 Shortness of breath; Z20.828 Contact with and (suspected) exposure to other viral communicable diseases; I10 Essential (primary) hypertension; K21.9 Gastro-esophageal reflux disease without esophagitis; Z90.49 Acquired absence of other specified parts of digestive tract
CPT/HCPCS: 71045; 87635; 99284

== ENCOUNTER 2020-08-18 16:45 | Emergency (ER) | payer MEDICAID ==
[~2020-08-18] VITALS: Ht 177.8 cm; Wt 79.9 kg
[~2020-08-18 16:45] MED LIST changes: +DOXY50CA35 PO; -DOXY50CA4 PO
[2020-08-18 17:57] LABS: BASOPHILS % (AUTO) 0 % (0-1); EOSINOPHILS % (AUTO) 2 % (1-7); LYMPHOCYTES % (AUTO) 44 % (22-44); MEAN CORPUSCULAR HEMOGLOBIN 29.6 pg (27.5-34.5); MEAN PLATELET VOLUME 7.3 fL (7.4-10.4); MONOCYTES % (AUTO) 10 % (2-9); NEUTROPHILS % (AUTO) 44 % (42-75); PLATELET COUNT 204 x10^3/uL (130-400); RED BLOOD COUNT 4.92 x10^6/uL (4.38-5.82); RED CELL DISTRIBUTION WIDTH 12.9 % (9.4-14.8)
[2020-08-18 18:10] LABS: ALBUMIN 3.7 g/dL (3.4-5.0); ANION GAP 5 mmol/L (5-15); CALCIUM 8.5 mg/dL (8.5-10.1); CHLORIDE 112 mmol/L (98-107)
[2020-08-18 18:16] LABS: CREATININE 0.97 mg/dL (0.7-1.3); TROPONIN I < 0.015 ng/mL (0.000-0.045)
--- NOTE | 2020-08-18 18:58 | NUR ---
supercharger repair supervisor: pt to room from [facility]
--- NOTE | 2020-08-18 19:08 | NUR ---
pt reports feeling better then when he was sitting in the lobby but still is lightheaded and has some dizzyness. pt requesting to get med refill since he lost his bp meds at the hotel he was staying at.
[2020-08-18 20:09] VITALS: BP 139/92
== END 2020-08-18 20:11 | disposition home or self-care (01) ==
LOC: ED 20:00
DX: R51.9 Headache, unspecified (principal); R07.89 Other chest pain; R42 Dizziness and giddiness; R94.31 Abnormal electrocardiogram [ECG] [EKG]; Z76.0 Encounter for issue of repeat prescription; I10 Essential (primary) hypertension
CPT/HCPCS: 36415; 71045; 80048; 82040; 84484; 85025; 93005; 99285